=== PATIENT | female | born 1950 | race Caucasian/White ===

== ENCOUNTER 2022-05-09 11:02 | Emergency (ER) | payer OTHER ==
[~2022-05-09] VITALS: Ht 162.6 cm; Wt 54.4 kg
--- NOTE | 2022-05-09 11:25 | NUR ---
RECEVED PT 71 YRS FEMALE came from home c/o pain on lt mckeon 05/14 s/p fell down at home deformity on rt hand
--- NOTE | 2022-05-09 11:30 | NUR ---
SEEN BY DR. GUZMAN
--- NOTE | 2022-05-09 11:45 | NUR ---
X-ray done at bed side
[2022-05-09] MEDS ORDERED: HYDROCODONE/APAP 5/325MG TABLET PO ONE (12:00)
[2022-05-09] MEDS ORDERED: HYDROCODONE/APAP 5/325MG TABLET ONE (12:02)
--- NOTE | 2022-05-09 12:20 | NUR ---
DR. GUZMAN AT BED SIDE SPOOKING WITH PT AND FAMILY CONDITIN UP DATE
[2022-05-09] MEDS ORDERED: IBUP-1955 PO (12:35)
[2022-05-09] MEDS ORDERED: HYDR-4209 PO (12:35)
--- NOTE | 2022-05-09 13:00 | NUR ---
LONG SPLENT APPLIED ON RT ARM PT ABLE TO MOVE HERE HAND NO SWALLEN MOving her rt finger
--- NOTE | 2022-05-09 13:20 | NUR ---
D/C HOME WITH WITH ARM SLING
--- NOTE | 2022-05-09 13:25 | NUR ---
Patient discharged to home in stable condition. Written and verbal after care instructions given. Patient verbalizes understanding of instruction.
[2022-05-09 13:45] VITALS: BP 151/78
== END 2022-05-09 13:47 | disposition home or self-care (01) ==
LOC: ER 11:15
DX: S52.514A Nondisplaced fracture of right radial styloid process, initial encounter for closed fracture (principal); Z87.39 Personal history of other diseases of the musculoskeletal system and connective tissue; Z88.8 Allergy status to other drugs, medicaments and biological substances; W18.30XA Fall on same level, unspecified, initial encounter; Y93.89 Activity, other specified; Y92.89 Other specified places as the place of occurrence of the external cause; Y99.8 Other external cause status
CPT/HCPCS: 73110

== ENCOUNTER 2022-09-05 13:42 | Inpatient (IN) | payer OTHER ==
[~2022-09-05] VITALS: Ht 165.1 cm; Wt 63.5 kg
[~2022-09-05 13:42] MED LIST: HYDR-4209 PO; IBUP-1955 PO
--- NOTE | 2022-09-05 13:57 | NUR ---
TECH AT BEDSIDE FOR EKG
--- NOTE | 2022-09-05 14:01 | NUR ---
[id number], PICKED UP [facility], "WAS DIFFICULT TO AROUSE AT A PARK BENCH" SYNCOPAL EPISODE, NO TRAUMA, BG 144 PT AOx4 able to express her concerns, pt does not recall situation that argelia her here. VSS, no signs of ditress, multiple skin scrapes due to fall. Pt in station #12. IV on left AC, no signs of infiltration. Blood drawn, sent to lab. Will continue to monitor.
--- NOTE | 2022-09-05 14:15 | NUR ---
Blood Sugar: 87
--- NOTE | 2022-09-05 14:22 | NUR ---
COVID test collected
[2022-09-05 14:29] LABS: BASOPHILS # (AUTO) 0.1 K/uL (0.0-0.2); BASOPHILS % (AUTO) 0.7 % (0.0-2.0); EOSINOPHILS % (AUTO) 1.5 % (0.0-6.0); HEMATOCRIT 42 % (33-45); HEMOGLOBIN 13.6 g/dL (11.5-14.8); LYMPHOCYTES % (AUTO) 21.4 % (20.0-44.0); MEAN CORPUSCULAR HGB CONC 32 g/dl (31.0-36.0); MEAN CORPUSCULAR VOLUME 88 fL (82-100); MONOCYTES # (AUTO) 0.5 K/uL (0.1-1.30); MONOCYTES % (AUTO) 5.1 % (2.0-12.0); NEUTROPHILS # (AUTO) 6.6 K/uL (1.8-8.9); NEUTROPHILS % (AUTO) 71.3 % (43.0-81.0); PLATELET COUNT (AUTO) 250 K/uL (150-450); WHITE BLOOD COUNT (AUTO) 9.2 K/uL (4.3-11.0)
--- NOTE | 2022-09-05 14:30 | NUR ---
MOVE SHEET SUBMITTED.
--- NOTE | 2022-09-05 14:38 | NUR ---
RT CALLED [phone]
--- NOTE | 2022-09-05 14:45 | NUR ---
URINE SAMPLE SENT TO LAB
[2022-09-05 14:55] LABS: ALANINE AMINOTRANSFERASE 23 U/L (12-78); ALBUMIN 3.9 g/dL (3.4-5.0); ALKALINE PHOSPHATASE 72 U/L (46-116); ASPARTATE AMINOTRANSFERASE 23 U/L (15-37); BILIRUBIN,DIRECT 0.1 mg/dL (0.0-0.2); BILIRUBIN,TOTAL 0.3 mg/dL (0.2-1.0); CALCIUM, SERUM 9.8 mg/dL (8.5-10.1); CARBON DIOXIDE 21 mmol/L (21-32); CHLORIDE 104 mmol/L (98-107); CREATININE 1.2 mg/dL (0.6-1.3); GLUCOSE 132 mg/dL (74-106); SODIUM SERUM 138 mmol/L (136-145); TOTAL PROTEIN, SERUM 7.2 g/dL (6.4-8.2); UREA NITROGEN, BLOOD 19 mg/dL (7-18)
--- NOTE | 2022-09-05 14:56 | NUR ---
PATIENT TAKEN TO CT VIA SHAMIKA
--- NOTE | 2022-09-05 15:33 | NUR ---
CALLED [facility] PER BRI REYNOSO WILL CALL US BACK.
[2022-09-05] MEDS ORDERED: LORAZEPAM INJ 2 MG/ML VIAL ONE (15:38)
--- NOTE | 2022-09-05 15:52 | NUR ---
[facility] CALLED BUCKLE STRINGER PAGED.
[2022-09-05] MEDS: LEVETIRACETAM (500MG) 1,000 MG in IV NS 0.9% 100 ML IV SCH (16:00)
[2022-09-05] MEDS ORDERED: LORAZEPAM INJ 2 MG/ML VIAL IV ONE (16:00)
[2022-09-05 16:09] LABS: ACETAMINOPHEN < 10 ug/ml (10-30); ALCOHOL, BLOOD < 3 mg/dL (0-0)
[2022-09-05] MEDS ORDERED: ALEN70TA80 PO (16:26)
--- NOTE | 2022-09-05 16:26 | NUR ---
room 118-1
--- NOTE | 2022-09-05 16:44 | NUR ---
Report given to Katie RN, pt to go to room #118
--- NOTE | 2022-09-05 17:15 | NUR ---
PT TRANSFERRED TO 118 VIA [facility] ACLS PROTOCOL. WARM HANDOFF GIVEN TO RN ASSIGNED.
[2022-09-05] MEDS ORDERED: ONDANSETRON HCL/PF 4 MG/2 ML VIAL IVP PRN (17:30)
[2022-09-05] MEDS ORDERED: Z GUARD REMEDY 4 OZ OINT TP PRN (17:30)
[2022-09-05] MEDS ORDERED: ACETAMINOPHEN 325 MG TABLET PO PRN (17:30)
[2022-09-05] MEDS ORDERED: LORAZEPAM INJ 2 MG/ML VIAL IV PRN (17:30)
[2022-09-05] MEDS ORDERED: MAG HYDROX/AL HYDROX/SIMETH 30 ML UDC PO PRN (17:30)
[2022-09-05] MEDS ORDERED: MAGNESIUM HYDROXIDE 30 ML UDC PO PRN (17:30)
[2022-09-05 17:52] VITALS: BP 103/57
[2022-09-05] MEDS: IV NS 0.9% 1,000 ML IV PRN (18:01)
--- NOTE | 2022-09-05 18:09 | NUR ---
RN NOTE RECEIVED PATIENT IN STABLE CONDITION PLACED IN ROOM 118-1.
--- NOTE | 2022-09-05 18:20 | NUR ---
RN NOTE CLEANING PATIENT WITH MAIL HANDLER EQUIPMENT OPERATOR, WHEN PATIENT IS AWAKE SHE BECOMES COMBATIVE AND CONFUSED. ATTEMPTING TO REMOVE IV AND TELE MONITOR. I WAS ABLE TO CALM PATIENT DOWN AND SHE RETURNED TO SLEEP. FAMILY MEMBERS DID ARRIVE 5 MIN LATER AND WANTED TO STAY WITH PATIENT OVER NIGHT TO HELP REORIENT HER WHEN SHE IS AWAKE. INFORMED FAMILY THAT VISITING HOURS ARE OVER AT 2000 BUT THEY CAN ALWAYS CALL THE UNIT OR SPEAK TO THE NURSING TIRE MANAGER AND SEE IF SPECIAL ACCOMMODATIONS CAN BE MADE. WILL ENDORSE CONDITION TO NIGHT NURSE.
[2022-09-05 18:28] LABS: BILIRUBIN,URINE NEGATIVE (NEGATIVE); COLOR,URINE YELLOW (YELLOW); LEUKOCYTE ESTERASE ,URINE NEGATIVE (NEGATIVE); NITRITE, URINE NEGATIVE (NEGATIVE); PH,URINE 5.5 (5.0-8.0); PROTEIN,URINE 1+ mg/dl (NEGATIVE); UGLUCOSE NEGATIVE (NEGATIVE); UROBILINOGEN,URINE 0.2 EU/dL (0.2)
--- NOTE | 2022-09-05 18:44 | NUR ---
RN CLOSING NOTE PATIENT RESTING IN BED RESPONDS TO PAINFUL STIMULI. ON 4L NC WITH NO CURRENT SIGNS OF RESPIRATORY DISTRESS. IS ACCESS ON RIGHT AC 20 G CURRENTLY RUNNING NS AT 75MLS/HR. PATIENT IS A NEW ADMISSION ATTEMPTED TO TAKE PICTURE OF LEFT ELBOW, PATIENT BECAME COMBATIVE. SAFETY MEASURES IN PLACE PER HOSPITAL POLICY IN ADDITION TO SEIZURE PRECAUTION. NO SEIZURE ACTIVITY NOTES SINCE PATIENTS ARRIVAL TO UNIT. WILL ENDORSE TO NIGHT NURSE FOR [facility].
--- NOTE | 2022-09-05 19:30 | NUR ---
RN OPENING NOTE RECEIVED PATIENT RESTING IN BED A/O X0 RESPONDS TO PAINFUL STIMULI. ON 4L NC WITH NO CURRENT SIGNS OF RESPIRATORY DISTRESS. IS ACCESS ON RIGHT AC 20 G CURRENTLY RUNNING NS AT 75MLS/HR. SAFETY MEASURES IN PLACE; BED IN LOWEST AND LOCKED POSITION, CALL LIGHT WITHIN REACH, BED ALARM ON, PT ON SEIZURE PRECAUTION. WILL CONT TO MONITOR THROUGHOUT THE SHIFT.
[2022-09-05 20:00] VITALS: BP 113/74
--- NOTE | 2022-09-05 20:45 | NUR ---
RN NOTE LAB CALLED SPOKE TO GABY Schwarz [facility]. SVP RESEARCH AND STRATEGIC ANALYSIS MD MADE AWARE, ORDERED ASPIRIN 325 MG PO ONCE. ORDER TAKEN AND CARRIED OUT WILL CONT TO MONITOR PT.
[2022-09-05] MEDS ORDERED: ASPIRIN 325 MG TABLET PO ONE (21:15)
[2022-09-05 22:54] LABS: BACTERIA,URINE Rare /HPF (None Seen); RBC,URINE 0-2 /HPF (0-2); SQUAMOUS EPITHELIAL CELL,UR Rare /HPF (None Seen); WBC,URINE NONE SEEN /HPF (0-3)
[2022-09-06] VITALS (7 sets, daily range): BP systolic 105–136; BP diastolic 61–75
[2022-09-06] MEDS: LEVETIRACETAM (500MG) 1,000 MG in IV NS 0.9% 100 ML IV SCH (04:41)
[2022-09-06] MEDS ORDERED: LEVETIRACETAM (500MG) 500 MG/5 ML VIAL IV ONE (05:04)
[2022-09-06] MEDS: IV NS 0.9% 1,000 ML IV PRN (05:26)
--- NOTE | 2022-09-06 07:03 | NUR ---
RN CLOSING NOTE PATIENT RESTING IN BED RESPONDS TO PAINFUL STIMULI. ON 4L NC WITH NO CURRENT SIGNS OF RESPIRATORY DISTRESS. IS ACCESS ON RIGHT AC 20 G CURRENTLY RUNNING NS AT 75MLS/HR. ALL DUE MEDS GIVEN, KEPT DRY AND CLEAN, PT HAS EPISODES OF AGITATION, FREQUENT RE-ORIENTATION NEEDED, WITH B SOFT WRIST RESTRAINTS CIRCULATION WNL CHECKED Q2H, SAFETY MEASURES IN PLACE PER HOSPITAL POLICY IN ADDITION TO SEIZURE PRECAUTION. NO SEIZURE ACTIVITY THROUGHOUT THE SHIFT. WILL ENDORSE TO AM SHIFT NURSE FOR CONTINUITY OF CARE.
[2022-09-06 07:29] LABS: CALCIUM, SERUM 8.9 mg/dL (8.5-10.1); CARBON DIOXIDE 22 mmol/L (21-32); CHLORIDE 109 mmol/L (98-107); CREATININE 1.1 mg/dL (0.6-1.3); GLUCOSE 102 mg/dL (74-106); PHOSPHORUS 2.7 mg/dL (2.5-4.9); POTASSIUM 3.7 mmol/L (3.5-5.1); SODIUM SERUM 140 mmol/L (136-145); UREA NITROGEN, BLOOD 16 mg/dL (7-18)
--- NOTE | 2022-09-06 07:30 | NUR ---
TD RN AM NOTE PATIENT IN BED, ASLEEP, WAKES UP TO NAME AND TOUCH. ON 4L NC WITH NO CURRENT SIGNS OF RESPIRATORY DISTRESS. SR TO ST. WITH 96 TO 100 HR. DENIES CHEST PAIN/DISCOMFORT.RIGHT AC 20 G WITH ONGOING NS AT 75MLS/HR, INFUSING WELL, SITE CLEAR. AMBULATORY AD RAJAN, REGULAR DIET. WOUND CONSULT FOR ELBOW SKIN TEAR, SAFETY MEASURES IN PLACE; BED IN LOWEST AND LOCKED POSITION, SEIZURE PRECAUTION IN PLACE. CALL LIGHT WITHIN REACH, BED ALARM ON, POC DISCUSSED. WILL CONT TO MONITOR. FOR POSSIBLE TRANSFER TO [facility]
[2022-09-06 08:10] LABS: BASOPHILS % (AUTO) 0.4 % (0.0-2.0); EOSINOPHILS % (AUTO) 0.4 % (0.0-6.0); HEMATOCRIT 39 % (33-45); HEMOGLOBIN 12.5 g/dL (11.5-14.8); LYMPHOCYTES # (AUTO) 1.4 K/uL (0.8-4.8); LYMPHOCYTES % (AUTO) 13.2 % (20.0-44.0); MEAN CORPUSCULAR HGB CONC 32 g/dl (31.0-36.0); MEAN CORPUSCULAR VOLUME 89 fL (82-100); MONOCYTES # (AUTO) 0.9 K/uL (0.1-1.30); MONOCYTES % (AUTO) 9.2 % (2.0-12.0); NEUTROPHILS # (AUTO) 7.9 K/uL (1.8-8.9); NEUTROPHILS % (AUTO) 76.8 % (43.0-81.0); PLATELET COUNT (AUTO) 222 K/uL (150-450); RED BLOOD CELL COUNT(AUTO) 4.35 MIL/uL (4.0-5.2); WHITE BLOOD COUNT (AUTO) 10.3 K/uL (4.3-11.0)
--- NOTE | 2022-09-06 09:30 | NUR ---
RN NOTES DUE MEDS GIVEN
--- NOTE | 2022-09-06 09:55 | NUR ---
WOUND CARE CONSULT: PT PRESENTS WITH DRY ABRASION TO RT ELBOW AND VERY BONY SACRAL AREA, PRESENT ON ADMISSION. PT DEMONSTRATES ABILITY TO TURN AND REPOSITION IN BED AND IS CONTINENT AT THIS TIME. DISCUSSED SKIN PROTECTION WITH NURSING STAFF. MD IN AGREEMENT WITH PLAN OF CARE.
[2022-09-06] MEDS: CARVEDILOL 3.125 MG TABLET PO SCH ×2 (11:30→20:35)
[2022-09-06 12:25] LABS: THYROID STIMULATING HORMONE 1.736 uIU/mL (0.358-3.74)
--- NOTE | 2022-09-06 14:20 | NUR ---
RN NOTES [facility] L[facility] 1615. DR. RUSSO NOTIFIED PER DR. SUMMER CARTWRIGHT FOR TRANSFER TO [place].
--- NOTE | 2022-09-06 18:43 | NUR ---
TD RN CLOSING NOTE PATIENT IN BED, ASLEEP, WAKES UP TO NAME AND TOUCH. ON 4L NC WITH NO CURRENT SIGNS OF RESPIRATORY DISTRESS. SR HR 73 ON MONITOR. DENIES CHEST PAIN/DISCOMFORT.RIGHT AC 20 G WITH ONGOING NS AT 75MLS/HR,SITE CLEAR. PATIENT REFUSED EARLIER. AMBULATORY AD RAJAN, REGULAR DIET. SAFETY MEASURES IN PLACE; BED IN LOWEST AND LOCKED POSITION, SEIZURE PRECAUTION IN PLACE. CALL LIGHT WITHIN REACH, BED ALARM ON, ALL NEEDS MET AT THIS TIME. WILL ENDORSE TO NEXT SHIFT FOR [facility] PER JAN, SHE SPOKE TO CRAIG LEE CM [phone], PATIENT HAS A BED AVAILABLE, BUT THEY WILL TALK TO THEIR ADMITTING MD AND WILL CALL BACK. EEG AND CT ANGIO WITH 3D IMAGE OF HEART NOT DONE ANYMORE.
--- NOTE | 2022-09-06 19:10 | NUR ---
RN NOTE RECEIVED PT FOR CONTINUITY OF CARE. PATIENT A/OX2-3 IN NO S/SX OF ACUTE DISTRESS AT THIS TIME; CURRENTLY ON 4L OF 02 VIA NC; WITH 02 SAT >95% AT THIS TIME. WITH IV ACCESS PATENT, INTACT AND FLUSHING WELL. WITH RUNNING NS@75CC/HR. AWAITING TRANSFER GOING TO [facility]. WILL ENSURE SAFETY MEASURES WITHIN THE SHIFT. PATIENT BED ALARM IS ON. HEAD OF BED ELEVATED. BED IS LOCKED, IN LOWEST POSITION AND SIDE RAILS UP. CALL LIGHT WITHIN REACH OF THE PATIENT. WILL CONTINUE TO MONITOR AND REASSESS FOR ANY CHANGES AND WILL CARRY OUT ANY ONGOING AND ACTIVE MD ORDER.
--- NOTE | 2022-09-06 19:56 | NUR ---
RN NOTE RECEIVED CALL FROM ROSA BERMAN; MAINTENANCE SERVICE SUPERVISOR) ADVISED PT ACCEPTED TO BE TRANSFERRED TO [facility] ([phone]) RM [id number] ACCEPTING DOCTOR DR. CISSE. INITIAL V/S GIVEN. Addendum: 09/06/22 at 1958 by CHRISTOS JACOME RN [id number]
--- NOTE | 2022-09-06 19:58 | NUR ---
RN NOTE CALLED [facility] [phone] S/W YONIS ACCEPTED BY DR. CISSE. ALL PERTINENT INFO GIVEN. PT WILL BE GOING TO RM [id number]. AMBULANCE CULINARY DIRECTOR BY 2100.
--- NOTE | 2022-09-06 20:00 | NUR ---
RN NOTE TITRATED O2 TO 2L FROM 4L, PT TOLERATES WELL WITH O2 SAT >95%.
--- NOTE | 2022-09-06 22:10 | NUR ---
RN NOTE PT DC WITH STABLE V/S GOING TO [facility] PICKED UP BY AMBULANCE. .
== END 2022-09-06 22:13 | disposition short-term general hospital (02) | DRG 100 ==
LOC: ER 13:47 → TELE-TD 16:33
PROVIDERS: ADMIT Internal Medicine; ATTEND Internal Medicine
DX: R56.9 Unspecified convulsions (principal); I21.A1 Myocardial infarction type 2; J96.01 Acute respiratory failure with hypoxia; N17.0 Acute kidney failure with tubular necrosis; Z20.822 Contact with and (suspected) exposure to COVID-19; M19.90 Unspecified osteoarthritis, unspecified site; M81.0 Age-related osteoporosis without current pathological fracture; F12.90 Cannabis use, unspecified, uncomplicated; N18.9 Chronic kidney disease, unspecified; Z88.8 Allergy status to other drugs, medicaments and biological substances; Z79.83 Long term (current) use of bisphosphonates
CPT/HCPCS: 36415; 70450-TC; 71045-TC; 80048-TC; 80061-TC; 80076-TC; 81001; 82962-TC; 83735-TC; 83880; 84100-TC; 84439-TC; 84443-TC; 84484-TC; 85025-TC; 87081-TC; 93307-TC; C9803; G0378; G0480; J1953; J2060; J7030

== ENCOUNTER 2022-12-01 05:50 | Emergency (ER) | payer OTHER ==
[~2022-12-01] VITALS: Ht 165.1 cm; Wt 62.6 kg
[~2022-12-01 05:50] MED LIST changes: +ALEN70TA80 PO; -HYDR-4209 PO; -IBUP-1955 PO
--- NOTE | 2022-12-01 05:50 | NUR ---
[id number] FROM HOME,WITNESSED SEIZURE (GRANDMAL) 15 SECONDS BY . PLY CUTTER PT IS AAOX2. -HX OF SEIZURE. PLACED COMFORTABLY IN BED, VITALS CHECKED.
--- NOTE | 2022-12-01 06:15 | NUR ---
EKG AT BEDSIDE
--- NOTE | 2022-12-01 07:10 | NUR ---
BLOOD WORK COLLECTED AND SENT TO LAB
--- NOTE | 2022-12-01 07:10 | NUR ---
18GA RAC ESTABLISHED
--- NOTE | 2022-12-01 07:15 | NUR ---
Patient AOx4, blood sugar 128, MD Aware.
--- NOTE | 2022-12-01 07:24 | NUR ---
REPORT TO MAGNO PHELPS FOR [facility]
[2022-12-01] MEDS ORDERED: IV NS 0.9% 1,000 ML BAG IV ONE (07:30)
[2022-12-01 07:51] LABS: BASOPHILS # (AUTO) 0.1 K/uL (0.0-0.2); BASOPHILS % (AUTO) 0.8 % (0.0-2.0); EOSINOPHILS % (AUTO) 2.8 % (0.0-6.0); HEMATOCRIT 44 % (33-45); HEMOGLOBIN 14.3 g/dL (11.5-14.8); LYMPHOCYTES # (AUTO) 2.5 K/uL (0.8-4.8); LYMPHOCYTES % (AUTO) 34.4 % (20.0-44.0); MEAN CORPUSCULAR HGB CONC 33 g/dl (31.0-36.0); MEAN CORPUSCULAR VOLUME 89 fL (82-100); MONOCYTES # (AUTO) 0.6 K/uL (0.1-1.30); MONOCYTES % (AUTO) 7.8 % (2.0-12.0); NEUTROPHILS % (AUTO) 54.2 % (43.0-81.0); PLATELET COUNT (AUTO) 272 K/uL (150-450); RED BLOOD CELL COUNT(AUTO) 4.93 MIL/uL (4.0-5.2); WHITE BLOOD COUNT (AUTO) 7.4 K/uL (4.3-11.0)
[2022-12-01 07:56] LABS: CALCIUM, SERUM 10.3 mg/dL (8.5-10.1); CARBON DIOXIDE 17 mmol/L (21-32); CHLORIDE 104 mmol/L (98-107); CREATININE 1.2 mg/dL (0.6-1.3); GLUCOSE 170 mg/dL (74-106); POTASSIUM 3.8 mmol/L (3.5-5.1); SODIUM SERUM 139 mmol/L (136-145); UREA NITROGEN, BLOOD 21 mg/dL (7-18)
[2022-12-01 08:05] LABS: ALANINE AMINOTRANSFERASE 25 U/L (12-78); ALBUMIN 3.9 g/dL (3.4-5.0); ALCOHOL, BLOOD < 3 mg/dL (0-0); ALKALINE PHOSPHATASE 82 U/L (46-116); ASPARTATE AMINOTRANSFERASE 22 U/L (15-37); BILIRUBIN,DIRECT 0.1 mg/dL (0.0-0.2); BILIRUBIN,TOTAL 0.5 mg/dL (0.2-1.0); TOTAL PROTEIN, SERUM 7.3 g/dL (6.4-8.2)
[2022-12-01] MEDS ORDERED: LEVE500T9 PO (10:56)
--- NOTE | 2022-12-01 11:19 | NUR ---
PT EDUCATED BY MD AND RN REGARDING NEED FOR GETTING RX, THE LOCATION AND IMPORANCE FOR FOLLOW UP WITH PRIMARY CARE PROVIDER REGARDING TODAYS VISIT. IV CATHERTER DISCONTINUED.
[2022-12-01 11:21] VITALS: BP 102/62
== END 2022-12-01 11:22 | disposition home or self-care (01) ==
LOC: ER 05:58
DX: R56.9 Unspecified convulsions (principal); R55 Syncope and collapse; N18.9 Chronic kidney disease, unspecified; Z79.899 Other long term (current) drug therapy; Z88.1 Allergy status to other antibiotic agents
CPT/HCPCS: 99285; 96360; 96361; 93005; 71045; 85025; 80048; 80076; 36415; 82962; 80320; J7030; G0480

== ENCOUNTER 2025-01-25 15:35 | Emergency (ER) | payer OTHER ==
[~2025-01-25] VITALS: Ht 165.1 cm; Wt 62.6 kg
[~2025-01-25 15:35] MED LIST changes: +LEVE500T9 PO
[2025-01-25] MEDS: LEVETIRACETAM (500MG) 1,000 MG in IV NS 0.9% 90 ML IV SCH (15:58)
[2025-01-25 16:08] LABS: BASOPHILS # (AUTO) 0.1 K/uL (0.0-0.2); BASOPHILS % (AUTO) 0.6 % (0.0-2.0); EOSINOPHILS # (AUTO) 0.2 K/uL (0.0-0.7); HEMATOCRIT 43 % (33-45); HEMOGLOBIN 14.3 g/dL (11.5-14.8); LYMPHOCYTES # (AUTO) 3.1 K/uL (0.8-4.8); LYMPHOCYTES % (AUTO) 33.1 % (20.0-44.0); MEAN CORPUSCULAR HEMOGLOBIN 30 PG (26.0-33.0); MEAN CORPUSCULAR HGB CONC 33 g/dl (31.0-36.0); MEAN CORPUSCULAR VOLUME 90 fL (82-100); MONOCYTES # (AUTO) 0.6 K/uL (0.1-1.30); MONOCYTES % (AUTO) 6.5 % (2.0-12.0); NEUTROPHILS # (AUTO) 5.4 K/uL (1.8-8.9); NEUTROPHILS % (AUTO) 57.8 % (43.0-81.0); PLATELET COUNT (AUTO) 226 K/uL (150-450); RED BLOOD CELL COUNT(AUTO) 4.83 MIL/uL (4.0-5.2); RED CELL DISTRIBUTION WIDTH 14.1 % (11.5-15.0); WHITE BLOOD COUNT (AUTO) 9.4 K/uL (4.3-11.0)
[2025-01-25 16:24] LABS: ALANINE AMINOTRANSFERASE 17 U/L (12-78); ALBUMIN 4.1 g/dL (3.4-5.0); ASPARTATE AMINOTRANSFERASE 18 U/L (15-37); BILIRUBIN,DIRECT 0.1 mg/dL (0.0-0.2); BILIRUBIN,TOTAL 0.4 mg/dL (0.2-1.0); CALCIUM, SERUM 10.1 mg/dL (8.5-10.1); CARBON DIOXIDE 19 mmol/L (21-32); GLUCOSE 111 mg/dL (74-106); TOTAL PROTEIN, SERUM 7.6 g/dL (6.4-8.2); UREA NITROGEN, BLOOD 25 mg/dL (7-18)
[2025-01-25 16:43] LABS: ALKALINE PHOSPHATASE 89 U/L (46-116); CHLORIDE 107 mmol/L (98-107); CREATININE 1.5 mg/dL (0.6-1.3); POTASSIUM 3.6 mmol/L (3.5-5.1)
[2025-01-25 16:46] LABS: SODIUM SERUM 140 mmol/L (136-145)
[2025-01-25] MEDS ORDERED: LEVE500T9 PO (16:52)
[2025-01-25 17:00] VITALS: BP 134/85; TEMP 98.2; O2SAT 96
[2025-01-25 17:09] LABS: INR 0.94 (0.91-1.10); PARTIAL THROMBOPLASTIN TIME 24.2 SEC (24.3-34.3)
== END 2025-01-25 17:24 | disposition home or self-care (01) ==
LOC: ER 15:43
DX: G40.909 Epilepsy, unspecified, not intractable, without status epilepticus (principal); M81.0 Age-related osteoporosis without current pathological fracture; N18.9 Chronic kidney disease, unspecified; Z79.899 Other long term (current) drug therapy; Z88.5 Allergy status to narcotic agent
CPT/HCPCS: 99285; 96365; 93005; 71045; 70450; 85025; 80048; 80076; 36415; 85730; 80320; J7030; J1953; G0480